=== PATIENT | female | born 1975 | race Caucasian/White ===

== ENCOUNTER 2016-11-03 10:10 | Emergency (ER) | payer OTHER ==
[2016-11-03 12:02] VITALS: BP 119/75
== END 2016-11-03 12:00 | disposition home or self-care (01) ==
LOC: ED 10:10
DX: S50.11XA Contusion of right forearm, initial encounter (principal); S39.91XA Unspecified injury of abdomen, initial encounter; S80.11XA Contusion of right lower leg, initial encounter; W01.0XXA Fall on same level from slipping, tripping and stumbling without subsequent striking against object, initial encounter; Y93.89 Activity, other specified; Y99.8 Other external cause status; Y92.89 Other specified places as the place of occurrence of the external cause
CPT/HCPCS: Q0092